=== PATIENT | male | born 1950 | race Caucasian/White ===

== ENCOUNTER 2019-06-07 07:16 | Day surgery (SDC) | payer MEDICARE, BC ==
[2019-06-03 12:52] LABS: BASOPHILS # (AUTO) 0.1 X10'3 (0-0.2); BASOPHILS % (AUTO) 0.9 % (0-1); EOSINOPHILS # (AUTO) 0.2 X10'3 (0-0.9); EOSINOPHILS % (AUTO) 2.5 % (0-6); LYMPHOCYTES # (AUTO) 1.4 X10'3 (1.1-4.8); LYMPHOCYTES % (AUTO) 15.8 % (21-51); MEAN CORPUSCULAR HGB CONC 32.9 g/dL (33.0-36.5); MEAN CORPUSCULAR VOLUME 97.5 FL (78-98); MEAN PLATELET VOLUME 6.7 FL (7.4-10.4); MONOCYTES # (AUTO) 1.3 X10'3 (0-0.9); MONOCYTES % (AUTO) 14.9 % (2-12); NEUTROPHILS # (AUTO) 5.7 X10'3 (1.8-7.7); NEUTROPHILS % (AUTO) 65.9 % (42-75); PRE OP HEMATOCRIT 35.5 % (42.0-52.0); PRE OP HEMOGLOBIN 11.7 g/dL (14.0-17.9); PRE OP PLATELET COUNT 382 X10'3 (140-440); RED BLOOD COUNT 3.64 X10'6 (4.70-6.10); RED CELL DISTRIBUTION WIDTH 15.7 % (11.5-14.5)
[2019-06-03 13:29] LABS: ALBUMIN 3.9 G/DL (3.4-5.0); ALKALINE PHOSPHATASE 110 IU/L (46-116); BLOOD UREA NITROGEN 15 MG/DL (7-18); CALCIUM 9.3 MG/DL (8.5-10.1); CHLORIDE 108 MMOL/L (99-107); PRE OP ALT 27 U/L (30-65); PRE OP ANION GAP 8 (8-16); PRE OP AST 29 U/L (10-37); PRE OP BILIRUB, TOTAL 0.7 MG/DL (0.0-1.0); PRE OP GLUCOSE 97 MG/DL (70-104); PRE OP SODIUM 142 MMOL/L (135-145); TOTAL CARBON DIOXIDE 25.7 MMOL/L (24-32); TOTAL PROTEIN 7.8 G/DL (6.4-8.2); eGFR 74 ML/MIN
[~2019-06-07] VITALS: Ht 182.9 cm; Wt 79.4 kg
[2019-06-07] VITALS (9 sets, daily range): BP systolic 149–160; BP diastolic 79–92
[~2019-06-07 07:16] MED LIST: ASPI-611 PO; ATOR20TA66 PO; BUPIVAcaine/PF 2.5mg/ml (0.25%) 10ml vial ONE; BUPR150T6 PO; DOCUMENT DATE & TIME OF BETA-BLOCKER PO ONE; METO50TA16 PO; PANT40TA4 PO; cefazolin/dext.iso 2gm/100ml 100 ML IV ONE; famotidine 10mg tablet PO ONE; ringers solution, lacted 1,000 ML IV SCH
[2019-06-07] MEDS ORDERED: LIDOcaine 0.5% (5mg/ml) 50ml vial ONE (08:33)
[2019-06-07] MEDS ORDERED: fentaNYL/PF 50MCG/1 ML 2ML syringe ONE ×2 (08:37→09:48)
[2019-06-07] MEDS ORDERED: midazolam 2 mg/2 ml injection ONE ×2 (09:04→09:41)
[2019-06-07] MEDS ORDERED: triamcinolone acetonide 40mg/ml inj ONE (09:19)
[2019-06-07] MEDS: BUPIVAcaine/PF 2.5mg/ml (0.25%) 10ml vial ONE ×2 (09:46→09:57)
[2019-06-07] MEDS ORDERED: BUPIVAcaine/PF 2.5mg/ml (0.25%) 10ml vial ONE (09:49)
[2019-06-07] MEDS ORDERED: ketamine 50mg/5ml syringe ONE (09:53)
[2019-06-07] MEDS ORDERED: propofol inj 20 ML IV ONE (10:15)
--- NOTE | 2019-06-07 10:25 | NUR ---
Received from OR via BED, accompanied by Anesthesiologist DR LAWRENCE and report given by Anesthesiologist. PT DROWSY, DENEIS PAIN, RIGHT HAND W/REYNA COVERING SMALL INCISION TO PALM OF HAND CDI, LEFT HAND/WRIST W/APURVA NICE COVERING INCISION CDI, FINGERS PWD, MINE SHIFTER 1-2 SECONDS. Addendum: 06/07/19 at 1046 by Mira Longoria RN Amended: Links added.
--- NOTE | 2019-06-07 11:35 | NUR ---
D/C INSTRUCTIONS GIVEN AND GONE OVER W/PT WHO VERBALIZED UNDERSTANDING, PT D/CD TO HOME VIA W/C TO PRIVATE VEHICLE W/O INCIDENT. Addendum: 06/07/19 at 1151 by Mira Longoria RN Amended: Links added.
== END 2019-06-07 11:35 | disposition home or self-care (01) ==
LOC: PAS 07:16
PROVIDERS: ATTEND Orthopaedic Surgery Hand Surgery
DX: M72.0 Palmar fascial fibromatosis [Dupuytren] (principal); I25.10 Atherosclerotic heart disease of native coronary artery without angina pectoris; I11.9 Hypertensive heart disease without heart failure; I73.9 Peripheral vascular disease, unspecified; M19.90 Unspecified osteoarthritis, unspecified site; F17.210 Nicotine dependence, cigarettes, uncomplicated; Z79.82 Long term (current) use of aspirin; Z79.899 Other long term (current) drug therapy; Z95.1 Presence of aortocoronary bypass graft; Z98.890 Other specified postprocedural states
CPT/HCPCS: 26040; 26123; 36415; 80053; 82948; 85025; A6222; J2001; J2250; J2704; J3010; J3301; J3490; J7120; A4215; A4615; A6449; A7000

== ENCOUNTER 2024-11-06 09:37 | Outpatient (CLI) | payer MEDICARE, OTHER ==
[2024-11-04 10:13] LABS: ALBUMIN 3.5 G/DL (3.4-5.0); ANION GAP 10 (8-16); BLOOD UREA NITROGEN 21 MG/DL (7-18); BUN/CREATININE RATIO 20.6 (10.0-20.0); CALCIUM 8.9 MG/DL (8.5-10.1); CHLORIDE 105 MMOL/L (99-107); CREATININE 1.02 MG/DL (0.60-1.10); GLUCOSE 102 MG/DL (70-104); POTASSIUM 3.8 MMOL/L (3.5-5.1); SODIUM 141 MMOL/L (135-145); TOTAL CARBON DIOXIDE 25.7 MMOL/L (24-32); eGFR 71 ML/MIN
[~2024-11-06 09:37] MED LIST changes: -BUPIVAcaine/PF 2.5mg/ml (0.25%) 10ml vial ONE; +BUPR-726 PO; -BUPR150T6 PO; -DOCUMENT DATE & TIME OF BETA-BLOCKER PO ONE; -PANT40TA4 PO; +PANT40TA54 PO; -cefazolin/dext.iso 2gm/100ml 100 ML IV ONE; -famotidine 10mg tablet PO ONE; +iohexol 350 MG/ML 50ML vial IV ONE; +iohexol 350MG/ML 100ml bottle IV ONE; -ringers solution, lacted 1,000 ML IV SCH
--- NOTE | 2024-11-06 18:41 | RADIOLOGY REPORT ---
CTA ABDOMEN AND PELVIS WITH BILATERAL LOWER EXTREMITY RUNOFFS Clinical Indication: ATHSCL [place] ARTERIES OF EXTRM W REST PAIN, BILATERAL LEGS Technique: Multiple contiguous axial images were obtained through the abdomen, pelvis, and both lowe r extremities following the administration of IV contrast material. Post processing coronal and sagi ttal reconstruction images were made from the axial images. Image post-processing was obtained. IV contrast: 150 mL Omnipaque-350 Comparison: None FINDINGS: Lower Thorax: Mildly displaced fractures of the posterior right test, 11th, and 12th ribs the heart s ize is normal. Prior median sternotomy wires partially imaged. At least mild aortic calcifications p artially imaged. Linear bibasilar scarring or atelectasis. There is mild centrilobular emphysema. Sma ll bilateral fat containing bochdalek hernias. Liver and Biliary system: Unremarkable. Spleen: Unremarkable. Adrenal Glands and Kidneys: Normal adrenal glands. No hydronephrosis or nephrolithiasis. A prominent cyst with linear internal septations in the lower pole right kidney measuring 4.3 cm on series 4, newton ge 53. Pancreas and Retroperitoneum: Unremarkable. Aorta and Major Vessels: Widely patent abdominal aorta with marked mixed atherosclerotic plaque. The common hepatic artery originates from the SMA. There is marked mixed atherosclerotic plaque at the or igin and throughout the SMA with noms-mt-gspngnzg stenosis of the proximal SMA. 2 right and 1 left re nal arteries. There is moderate to marked mixed atherosclerotic plaque at the origin of the renal art eries with at least kedg-bm-yxvkmyyr stenosis of the proximal left renal artery. Patent origin of the [place]. Moderate mixed atherosclerotic plaque throughout the iliac arteries. 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 There is a patent stent graft within the right external jono ac artery. 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 Bowel, Mesentery and Peritoneal space: The bowel loops are normal caliber. Colonic diverticulosis whi ch is moderate distally. Normal appendix. There is no free air or fluid collection. Pelvis: No pelvic lymphadenopathy. Upper limits of normal-sized prostate gland containing dystrophic calcifications. Urinary bladder is mildly distended. Abdominal wall and Osseous Structures: Small fat containing bilateral inguinal hernias. There is bony demineralization. There is a chronic moderate compression fracture T12. No destructive osseous lesio n. Bilateral lower extremities: Right lower extremity: Bony demineralization. no acute fracture. There is no loculated fluid collection. The Muscle bundles about the right lower extremity are intact. Soft tissue scarring in the right inguinal region. Patent common femoral artery with mild mixed atherosclerotic plaque. There is qcky-qi-lvfeiqbh narro wing of the distal right common femoral artery by atherosclerotic plaque. Patent origins of the right superficial and deep femoral arteries. Patent deep femoral artery and branches. There is moderate mi xed atherosclerotic plaque throughout the right superficial femoral artery which becomes occluded dis tally. The right popliteal arteries occluded. There is reconstitution of blood flow in the trifurcati on arteries although with diminutive blood flow in the more distal trifurcation arteries. Left lower extremity: Bony demineralization. No acute fracture. There is no loculated fluid collection. The Muscle bundles about the right lower extremity are intact. 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 There is moderate to marked narrowing of the distal left common femoral artery by atherosclerot ic plaque. There is mildly patent proximal and origin left superficial femoral artery although become s occluded at the proximal aspect and remains occluded throughout its course. There is an occluded di stal left superficial femoral artery and popliteal artery stent graft. The left deep femoral artery i s patent. There is reconstitution of blood flow in the trifurcation arteries with diminutive blood fl ow in the distal posterior tibial artery. There is 2-vessel runoff to the foot in the anterior tibial artery in the peroneal artery. IMPRESSION: Abdomen/pelvis: 1. Patent abdominal aorta with marked mixed atherosclerotic plaque. 2. Marked mixed atherosclerotic plaque at the origin and throughout the SMA with exsl-bd-meritnkm leticia nosis of the proximal SMA. 3. Moderate to marked mixed atherosclerotic plaque at the origin of the renal arteries without least up to moderate stenosis of the proximal left renal artery. 4. Common hepatic artery originates from the SMA; 2 right and 1 left renal arteries. 5. 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 6. 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 7. Moderate mixed atherosclerotic plaque throughout the iliac arteries. 8. Colonic diverticulosis, moderate distally. 9. Displaced fractures of the posterior right 10th, 11th, and 12th ribs 10. Mild centrilobular emphysema. Right lower extremity: 1. Occlusion Of the distal right superficial femoral artery. 2. Occlusion of the right popliteal artery. 3. Reconstitution of blood flow in the trifurcation arteries presumably from collateral vasculature a lthough with diminutive opacification of the more distal trifurcation arteries which could be related to stenoses/ occlusions versus timing of contrast bolus Left lower extremity: 1. Left superficial femoral artery is occluded proximally and remains occluded throughout its course. Occluded left popliteal artery. 2. Occluded distal left SFA and popliteal artery stent graft. 3. Reconstitution of blood flow in the trifurcation arteries presumably from collateral vasculature. 4. Diminutive blood flow in the distal left posterior tibial artery 5. There is 2 vessel patent runoff to the foot in the anterior tibial and peroneal arteries.
== END 2024-11-06 23:59 | disposition home or self-care (01) ==
LOC: RAD 09:37
PROVIDERS: ATTEND Internal Medicine Interventional Cardiology
DX: S22.41XA Multiple fractures of ribs, right side, initial encounter for closed fracture (principal); I70.223 Atherosclerosis of native arteries of extremities with rest pain, bilateral legs; J43.2 Centrilobular emphysema; K44.9 Diaphragmatic hernia without obstruction or gangrene; I25.10 Atherosclerotic heart disease of native coronary artery without angina pectoris; I70.213 Atherosclerosis of native arteries of extremities with intermittent claudication, bilateral legs; I70.1 Atherosclerosis of renal artery; X58.XXXA Exposure to other specified factors, initial encounter; Y93.89 Activity, other specified; Y92.89 Other specified places as the place of occurrence of the external cause; Y99.8 Other external cause status; I74.5 Embolism and thrombosis of iliac artery
CPT/HCPCS: 36415; 75635; 80048; Q9967